=== PATIENT | male | born 1975 | race Two or more races ===

== ENCOUNTER 2018-01-16 23:10 | Emergency (ER) | payer OTHER ==
[~2018-01-16] VITALS: Ht 172.7 cm; Wt 87.5 kg
[2018-01-16] MEDS ORDERED: LIDOCAINE VISCOUS 2% 15ML UD MT ONE (23:15)
[2018-01-16] MEDS ORDERED: LIDOCAINE VISCOUS 2% 15ML UD ONE (23:15)
[2018-01-16 23:24] VITALS: BP 158/80
== END 2018-01-17 01:49 | disposition left against medical advice (07) ==
LOC: ER 23:15
DX: K08.89 Other specified disorders of teeth and supporting structures (principal); Z53.21 Procedure and treatment not carried out due to patient leaving prior to being seen by health care provider

== ENCOUNTER → 2025-02-19 | Outpatient (CLI) | payer OTHER ==
[2025-02-19 11:11] LABS: Urine Bacteria None Seen /hpf (None Seen)
[2025-02-19 11:47] LABS: Basophils # (auto) 0 10 ^3/uL (0-0.2); Basophils % (auto) 0.6 % (0.0-2.0); Eosinophils # (auto) 0.1 10 ^3/uL (0-0.8); Hemoglobin 15.1 g/dL (13.5-17.5); Lymphocytes # (auto) 2.1 10 ^3/uL (0.4-5.4); Mean Corpuscular Hemoglobin 30.8 pg (28.0-32.0); Mean Corpuscular Hgb Conc. 35.2 g/dL (32.0-36.0); Mean Corpuscular Volume 87.6 fL (80.0-100.0); Monocytes # (auto) 0.4 10 ^3/uL (0-1.3); Monocytes % (auto) 7.8 % (0.0-12.0); Neutrophils # (auto) 2.9 10 ^3/uL (1.6-8.6); Neutrophils % (auto) 52.6 % (37.0-80.0); Nucleated Red Blood Cells % 0.1 %; Platelet Count (auto) 332 10^3/uL (140-450); Red Blood Cells 4.91 10^6/uL (4.5-5.90); Red Cell Distribution Width 12.6 % (11.8-14.3); White Blood Cell 5.5 10^3/uL (4.4-10.8)
[2025-02-19 12:12] LABS: Prostate Specific Antigen 0.54 ng/mL (0.0-4.0)
[2025-02-19 12:14] LABS: Alanine Aminotransferase 14 U/L (7-40); Albumin 4.8 g/dL (3.2-4.8); Alkaline Phosphatase 61 U/L (46-116); Anion Gap 7 (5-15); Aspartate Aminotransferase 17 U/L (13-40); BUN/Creatinine Ratio 21.6 (10.0-20.0); Calcium 9.8 mg/dL (8.7-10.4); Carbon Dioxide 27 mmol/L (20-31); Chloride 105 mmol/L (98-107); Cholesterol 175 mg/dL (< 200); Glucose 88 mg/dL (74-106); HDL Cholesterol 49 mg/dL (40-59); Sodium 139 mmol/L (136-145); Total Protein 7.4 g/dL (5.7-8.2); Triglycerides 60 mg/dL (< 150)
[2025-02-19 12:15] LABS: Bilirubin, Total 0.7 mg/dL (0.2-1.0)
[2025-02-19 12:16] LABS: Follicle Stimulating Hormone 3.02 IU/L (1.4-18.1); Leuteinizing Hormone 2.7 IU/L (1.5-9.3)
[2025-02-19 12:17] LABS: Urine Blood Negative /uL (Negative); Urine Clarity Clear (Clear); Urine Color Light-Yellow (Yellow); Urine Protein, UAD Negative (Negative); Urine Specific Gravity 1.028 (1.001-1.035); Urine Squamous Epithelial Cell FEW /hpf (<5); Urine Urobilinogen Normal (Negative); Urine WBC < 1 /HPF (0-3); Urine pH 6.5 (5.0-9.0)
[2025-02-19 12:22] LABS: Blood Urea Nitrogen 25 mg/dL (9-23); LDL Cholesterol 116 mg/dL (< 100)
== END | disposition home or self-care (01) ==
LOC: LAB 10:46
PROVIDERS: ATTEND Nurse Practitioner Family
DX: Z12.5 Encounter for screening for malignant neoplasm of prostate (principal); Z12.11 Encounter for screening for malignant neoplasm of colon; I10 Essential (primary) hypertension; E29.1 Testicular hypofunction; E55.9 Vitamin D deficiency, unspecified; Z00.01 Encounter for general adult medical examination with abnormal findings
CPT/HCPCS: 36415; 80053; 80061; 81001; 82306; 83001; 83002; 83036; 84153; 84403; 84443; 85025

== ENCOUNTER → 2025-02-27 | Outpatient (CLI) | payer OTHER | END | disposition home or self-care (01) | LOC: LAB 06:45 | PROVIDERS: ATTEND Nurse Practitioner Family | DX: Z12.11 Encounter for screening for malignant neoplasm of colon (principal); Z12.5 Encounter for screening for malignant neoplasm of prostate; I10 Essential (primary) hypertension; E29.1 Testicular hypofunction; E51.9 Thiamine deficiency, unspecified; Z00.01 Encounter for general adult medical examination with abnormal findings | CPT/HCPCS: 82274 ==

== ENCOUNTER 2025-04-05 16:00 | Outpatient (CLI) | payer OTHER ==
[2025-04-05 16:54] LABS: Albumin 4.6 g/dL (3.2-4.8); Alkaline Phosphatase 72 U/L (46-116); Amylase 102 U/L (30-118); Anion Gap 8 (5-15); Aspartate Aminotransferase 29 U/L (13-40); BUN/Creatinine Ratio 11.3 (10.0-20.0); Blood Urea Nitrogen 11 mg/dL (9-23); Calcium 9.1 mg/dL (8.7-10.4); Carbon Dioxide 26 mmol/L (20-31); Chloride 105 mmol/L (98-107); Glucose 86 mg/dL (74-106); Lipase 49 U/L (12-53); Potassium 3.8 mmol/L (3.5-5.1); Sodium 139 mmol/L (136-145); Total Protein 7.1 g/dL (5.7-8.2)
[2025-04-05 16:55] LABS: Bilirubin, Total 0.6 mg/dL (0.2-1.0)
[2025-04-05 16:56] LABS: Alanine Aminotransferase 49 U/L (7-40)
== END 2025-04-05 17:00 | disposition home or self-care (01) ==
LOC: LAB 16:00
PROVIDERS: ATTEND Nurse Practitioner Family
DX: R10.2 Pelvic and perineal pain (principal)
CPT/HCPCS: 36415; 80053; 82150; 83013; 83690

== ENCOUNTER 2025-04-10 06:45 | Outpatient (CLI) | payer OTHER | END 2025-04-10 17:00 | disposition home or self-care (01) | LOC: LAB 06:45 | PROVIDERS: ATTEND Nurse Practitioner Family | DX: R10.2 Pelvic and perineal pain (principal) | CPT/HCPCS: 87045; 87177; 87427 ==

== ENCOUNTER 2025-06-04 13:22 | Outpatient (CLI) | payer OTHER ==
[2025-06-04 13:43] LABS: Hematocrit 46.0 % (41.0-53.0); Hemoglobin 16.1 g/dL (13.5-17.5); Mean Corpuscular Hemoglobin 30.1 pg (28.0-32.0); Mean Corpuscular Volume 86.1 fL (80.0-100.0); Nucleated Red Blood Cells % 0.1 %
[2025-06-04 14:48] LABS: Urine Protein, UAD Negative (Negative)
[2025-06-04 15:33] LABS: Alanine Aminotransferase 20 U/L (7-40); Albumin 4.7 g/dL (3.2-4.8); Alkaline Phosphatase 62 U/L (46-116); Anion Gap 9 (5-15); BUN/Creatinine Ratio 13.7 (10.0-20.0); Bilirubin, Total 0.7 mg/dL (0.2-1.0); Blood Urea Nitrogen 14 mg/dL (9-23); Calcium 9.3 mg/dL (8.7-10.4); Carbon Dioxide 28 mmol/L (20-31); Chloride 102 mmol/L (98-107); Glucose 89 mg/dL (74-106); Potassium 3.9 mmol/L (3.5-5.1); Sodium 139 mmol/L (136-145); Total Protein 6.9 g/dL (5.7-8.2)
== END 2025-06-04 17:00 | disposition home or self-care (01) ==
LOC: LAB 13:22
PROVIDERS: ATTEND Nurse Practitioner Family
DX: N18.2 Chronic kidney disease, stage 2 (mild) (principal); E78.5 Hyperlipidemia, unspecified; M23.50 Chronic instability of knee, unspecified knee
CPT/HCPCS: 36415; 80053; 81001; 82306; 83036; 84443; 85025; 86431